=== PATIENT | female | born 1995 | race Caucasian/White ===

== ENCOUNTER 2017-02-19 19:13 | Emergency (ER) | payer MEDICAID ==
[2017-02-19 19:27] VITALS: BP 117/74; PULSE 89; TEMP 98; O2SAT 98
[2017-02-19] MEDS ORDERED: Albuterol-Ipratrop 3 mg / 0.5 (3 ml) UD ONE (20:25)
[2017-02-19] MEDS ORDERED: Albuterol-Ipratrop 3 mg / 0.5 (3 ml) UD INH STA ×3 (20:55→20:56)
--- NOTE | 2017-02-19 21:07 | ED PDOC ---
HPI: General Adult Time Seen by Provider: 02/19/17 20:04 Chief Complaint (Nursing): Shortness Of Breath Chief Complaint (Provider): short of breath History Per: Patient History/Exam Limitations: no limitations Additional Complaint(s): 21yo female w/ Hx asthma, previous admissions but no intubations, comes to the ED complaining of shortness of breath which started this morning. It is associated with her asthma. This always happens when the weather changes. She uses her pump without any relief. She has a mild dry cough but no fever or chills. bilat wheez prolong exp phase impression mild astham exacerbation Past Medical History Reviewed: Historical Data, Nursing Documentation, Vital Signs Vital Signs: Last Vital Signs Temp 98 F 02/19/17 19:25 Pulse 89 02/19/17 19:25 Resp 18 02/19/17 21:33 BP 117/74 02/19/17 19:25 Pulse Ox 98 02/19/17 21:09 - Medical History PMH: Asthma - Family History Family History: States: Unknown Family Hx - Home Medications Home Medications: Ambulatory Orders Medication Instructions Recorded Albuterol HFA [Ventolin HFA 90 1 puff IH Q6H PRN #1 unit 03/24/ mcg/actuation (8 g)] Albuterol HFA [Ventolin HFA 90 1 puff IH Q6 #1 inhaler 02/19/17 mcg/actuation (8 g)] - Allergies Allergies/Adverse Reactions: Allergies Allergy/AdvReac Type Severity Reaction Status Date / Time No Known Allergies Allergy Verified 02/19/17 19:22 Review of Systems ROS Statement: Except As Marked, All Systems Reviewed And Found Negative Constitutional: Negative for: Fever, Chills Respiratory: Positive for: Cough. Negative for: Sputum Physical Exam - Reviewed Nursing Documentation Reviewed: Yes Vital Signs Reviewed: Yes - Physical Exam Appears: Positive for: Well, Non-toxic, No Acute Distress Head Exam: Positive for: ATRAUMATIC, NORMAL INSPECTION, NORMOCEPHALIC Skin: Positive for: Warm, Dry Eye Exam: Positive for: EOMI, PERRL Cardiovascular/Chest: Positive for: Regular Rate, Rhythm Respiratory: Positive for: Wheezing (bilateral wheezing with prolonged expiratory phase). Negative for: Rales, Rhonchi Extremity: Positive for: Normal ROM Neurologic/Psych: Positive for: Alert, Oriented - ECG O2 Sat by Pulse Oximetry: 98 (RA) Pulse Ox Interpretation: Normal Medical Decision Making Medical Decision Makin 3x duonebs ordered 22:00 Pt. feeling much better, no longer wheezing, return precautions given, will d/c home. Disposition - Clinical Impression Clinical Impression: Asthma - Disposition Referrals: [facility] [Outside] Disposition Time: 22:38 Condition: STABLE Prescriptions: Albuterol HFA [Ventolin HFA 90 mcg/actuation (8 g)] 1 puff IH Q6 #1 inhaler Instructions: Asthma (ED) Additional Comments - Additional Comments Additional Comments: Scribe Attestation: Documented by Jono Leyva acting as a scribe for Teresa Kim MD. Scribe Attestation: All medical record entries made by the Scribe were at my direction and personally dictated by me. I have reviewed the chart and agree that the record accurately reflects my personal performance of the history, physical exam, medical decision making, and the department course for this patient. I have also personally directed, reviewed, and agree with the discharge instructions and disposition.
[2017-02-19 21:33] VITALS: RESP 18
== END 2017-02-19 22:50 | disposition home or self-care (01) ==
LOC: H.ER 19:13
DX: J45.909 Unspecified asthma, uncomplicated (principal)

== ENCOUNTER 2018-01-08 12:07 | Emergency (ER) | payer MEDICAID, OTHER ==
[2018-01-08 12:10] VITALS: BMI 25.4
[2018-01-08 12:11] VITALS: BP 104/59; PULSE 65; RESP 17; TEMP 98.5; O2SAT 99
--- NOTE | 2018-01-08 13:07 | ED PDOC ---
HPI: Female Pain Time Seen by Provider: 01/08/18 12:28 Chief Complaint (Nursing): Female Genitourinary Chief Complaint (Provider): Swelling, pain, left labia minora History Per: Patient History/Exam Limitations: no limitations Onset/Duration Of Symptoms: Days Current Symptoms Are (Timing): Still Present Severity: Moderate Pain Scale Rating Of: 7 Quality Of Discomfort: Sharp, Aching Associated Symptoms: denies: Fever, Chills, Nausea, Vomiting, Loss Of Appetite, Constipation, Urinary Symptoms Alleviating Factors: None Additional Complaint(s): 22 yo female with no medical problems presents with swelling of the left side of her clitoris and labia minora for a few days. Pt is sexually active with only women. Pt deneis fever/chills. PT reports localized pain. PT states she has white discharge that does not seem abnormal for her. No similar in the past. Past Medical History Reviewed: Historical Data, Nursing Documentation, Vital Signs Vital Signs: Last Vital Signs Temp 98.5 F 01/08/18 12:10 Pulse 65 01/08/18 12:10 Resp 17 01/08/18 12:10 BP 104/59 L 01/08/18 12:10 Pulse Ox 99 01/08/18 12:10 - Medical History PMH: Asthma - Surgical History Surgical History: No Surg Hx - Family History Family History: States: Unknown Family Hx - Living Arrangements Living Arrangements: With Family - Social History Current smoker - smoking cessation education provided: No - Home Medications Home Medications: Ambulatory Orders Medication Instructions Recorded Albuterol HFA [Ventolin HFA 90 1 puff IH Q6H PRN #1 unit 03/24/15 mcg/actuation (8 g)] Albuterol HFA [Ventolin HFA 90 1 puff IH Q6 #1 inhaler 02/19/17 mcg/actuation (8 g)] Clindamycin [Cleocin] 300 mg PO QID #40 cap 01/08/18 Fluconazole [Diflucan] 150 mg PO ONCE #1 tab 01/08/18 - Allergies Allergies/Adverse Reactions: Allergies Allergy/AdvReac Type Severity Reaction Status Date / Time No Known Allergies Allergy Verified 02/19/17 19:22 Review of Systems Constitutional: Negative for: Fever, Chills Cardiovascular: Negative for: Chest Pain Respiratory: Negative for: Cough Skin: Positive for: Other Physical Exam - Reviewed Nursing Documentation Reviewed: Yes Vital Signs Reviewed: Yes - Physical Exam Appears: Positive for: Well, Non-toxic, No Acute Distress Head Exam: Positive for: ATRAUMATIC, NORMAL INSPECTION, NORMOCEPHALIC Skin: Positive for: Warm. Negative for: Normal Color (Slight swelling of the superior part of the labia minors and clitoris on the left, no discharge from the vagina. ) Eye Exam: Positive for: Normal appearance ENT: Positive for: Normal ENT Inspection Neck: Positive for: Normal, Painless ROM Cardiovascular/Chest: Positive for: Regular Rate, Rhythm Respiratory: Positive for: Normal Breath Sounds. Negative for: Accessory Muscle Use, Respiratory Distress Gastrointestinal/Abdominal: Positive for: Normal Exam, Bowel Sounds, Soft. Negative for: Tenderness Back: Positive for: Normal Inspection Extremity: Positive for: Normal ROM Neurologic/Psych: Positive for: Alert, Oriented - ECG O2 Sat by Pulse Oximetry: 99 Medical Decision Making Medical Decision Making: Discussed f.u with MANAGER CASINO for further evaluation in 2-3 days. Warm soaks/compresses. Disposition - Clinical Impression Clinical Impression: Labial irritation - Patient ED Disposition Is Patient to be Admitted: No Counseled Patient/Family Regarding: Diagnosis, Need For Followup, Rx Given - Disposition Disposition: Routine/Home Disposition Time: 13:05 Condition: GOOD Prescriptions: Clindamycin [Cleocin] 300 mg PO QID #40 cap Fluconazole [Diflucan] 150 mg PO ONCE #1 tab Instructions: Vulvitis Forms: [facility] ([place]ian), [facility] ED School/Work Excuse
== END 2018-01-08 13:41 | disposition home or self-care (01) ==
LOC: H.ER 12:07
DX: N90.89 Other specified noninflammatory disorders of vulva and perineum (principal); J45.909 Unspecified asthma, uncomplicated

== ENCOUNTER 2018-01-10 13:28 | Emergency (ER) | payer OTHER ==
[2018-01-10 13:28] VITALS: BMI 25.4
[2018-01-10 13:49] VITALS: BP 106/68; PULSE 90; RESP 16; TEMP 98; O2SAT 97
--- NOTE | 2018-01-10 15:44 | ED PDOC ---
HPI: Female Pain Time Seen by Provider: 01/10/18 14:11 Chief Complaint (Nursing): Female Genitourinary Chief Complaint (Provider): Genitourinary complaints History Per: Patient History/Exam Limitations: no limitations Onset/Duration Of Symptoms: Days Current Symptoms Are (Timing): Still Present Additional Complaint(s): 22yo female, presents to the ED for evaluation of swelling and pain to her clitoris. Patient was evaluated in this facility on 01/08 and was given antibiotics, and fluconazole. Patient states she has been taking the prescribed medication with no relief of pain. She was instructed to follow up with a contact center associate but she has not been able to yet. She denies any fever, chills, urinary symptoms, abdominal pain, vaginal discharge or bleeding. Abnormal Vaginal Bleeding: No Past Medical History Reviewed: Historical Data, Nursing Documentation, Vital Signs Vital Signs: Last Vital Signs Temp 98.0 F 01/10/18 13:46 Pulse 90 01/10/18 13:46 Resp 16 01/10/18 13:46 BP 106/68 01/10/18 13:46 Pulse Ox 97 01/10/18 13:46 - Medical History PMH: Asthma - Surgical History Surgical History: No Surg Hx - Family History Family History: States: Unknown Family Hx - Home Medications Home Medications: Ambulatory Orders Medication Instructions Recorded Albuterol HFA [Ventolin HFA 90 1 puff IH Q6H PRN #1 unit 03/24/15 mcg/actuation (8 g)] Albuterol HFA [Ventolin HFA 90 1 puff IH Q6 #1 inhaler 02/19/17 mcg/actuation (8 g)] Clindamycin [Cleocin] 300 mg PO QID #40 cap 01/08/18 Fluconazole [Diflucan] 150 mg PO ONCE #1 tab 01/08/18 - Allergies Allergies/Adverse Reactions: Allergies Allergy/AdvReac Type Severity Reaction Status Date / Time No Known Allergies Allergy Verified 01/10/18 13:45 Review of Systems ROS Statement: Except As Marked, All Systems Reviewed And Found Negative Constitutional: Negative for: Fever, Chills Genitourinary Female: Positive for: Other (swelling and pain to clitoris). Negative for: Dysuria, Hematuria, Vaginal Discharge, Vaginal Bleeding Physical Exam - Reviewed Nursing Documentation Reviewed: Yes Vital Signs Reviewed: Yes - Physical Exam Comments: GENERAL APPEARANCE: Patient is awake, alert, oriented x 3, in no acute distress. SKIN: Warm, dry; (-) cyanosis. ABDOMEN AND GI: Soft, (-) tenderness. PELVIC: clitoris and clitoral diaz noted to be with moderate edema, tenderness and fluctuance on exam; (-) erythema (-) vesicles, (-) ulcers. A female RN economics teacher was present with me during the entire examination. EXTREMITIES: (-) deformity. - ECG O2 Sat by Pulse Oximetry: 97 (RA) Pulse Ox Interpretation: Normal Medical Decision Making Medical Decision Making: Impression: Abscess to clitoris Plan: -- Consult to dining room captain physical education professor. Case d/w Dr. Zapata, who recommends that the patient be referred to Dr. Osuna for further evaluation. -- Patient made aware to follow up with a contact center associate referral provided for further interventions regarding her symptoms. Based on her current presentation , no further treatment can be done in the ER. Advised to follow up with OBGYN (referral provided) in 1-2 days without fail. Advised to continue current antibiotic. Return to the emergency room at any time for any new or worsening symptoms. Patient states she fully agrees with and understands discharge instructions. States that she agrees with the plan and disposition. Verbalized and repeated discharge instructions and plan. I have given the patient opportunity to ask any additional questions. Scribe Attestation: Documented by Peace Lynch acting as a scribe for Petty Browning PA-C. Provider Attestation: All medical record entries made by the Scribe were at my direction and personally dictated by me. I have reviewed the chart and agree that the record accurately reflects my personal performance of the history, physical exam, medical decision making, and the department course for this patient. I have also personally directed, reviewed, and agree with the discharge instructions and disposition. Disposition - Clinical Impression Clinical Impression: Abscess - Patient ED Disposition Is Patient to be Admitted: No Counseled Patient/Family Regarding: Diagnosis, Need For Followup - Disposition Referrals: [facility] [Outside] Marcie Faulkner MD [Staff Provider] - Disposition: Routine/Home Disposition Time: 14:40 Condition: STABLE Additional Instructions: Thank you for letting us take care of you today. You were treated for ABSCESS. The emergency medical care you received today was directed at your acute symptoms. Continue current antibiotic. It may take several days for your symptoms to resolve. Return to the Emergency Department if your symptoms worsen , do not improve, or if you have any other problems. Please contact comic artist referral provided or the clinic in 2 days for re-evaluation and follow up. Bring any paperwork you were given at discharge with you along with any medications you are taking to your follow up visit. Our treatment cannot replace ongoing medical care by a primary care provider (PCP) outside of the emergency department. Thank you for allowing the [facility] team to be part of your care today. Dr Faulkner [address] [place] [address] Instructions: Skin Abscess Forms: [employer] ([place]), [facility] ED School/Work Excuse - PA / TOBY MAKER / Resident Statement MD/DO has reviewed & agrees with the documentation as recorded.
== END 2018-01-10 15:50 | disposition home or self-care (01) ==
LOC: H.ER 13:28
DX: N76.4 Abscess of vulva (principal); J45.909 Unspecified asthma, uncomplicated